=== PATIENT | female | born 1970 | race Caucasian/White ===

== ENCOUNTER 2018-01-19 18:03 | Emergency (ER) | payer OTHER ==
[~2018-01-19] VITALS: Ht 162.6 cm; Wt 83.9 kg
--- NOTE | 2018-01-19 18:03 | NUR ---
PATIENT BIBA TO BED 3.
[2018-01-19 18:14] VITALS: BP 121/69
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
--- NOTE | 2018-01-19 18:40 | NUR ---
REMOVED C-COLLAR AND CLEARED C-SPINE PRECAUTIONS
[2018-01-19] MEDS ORDERED: BACITRACIN OINT 500 UNITS/GM PKT TP ONE (19:10)
[2018-01-19] MEDS ORDERED: DIAZEPAM 5 MG TAB PO ONE (19:10)
[2018-01-19] MEDS ORDERED: KETOROLAC 30 MG/ML VIAL IM ONE (19:10)
--- NOTE | 2018-01-19 19:15 | NUR ---
xray at bedside
--- NOTE | 2018-01-19 19:21 | NUR ---
REPORT GIVEN TO DANILO GLORIA
[2018-01-19 20:12] VITALS: BP 126/83
--- NOTE | 2018-01-19 20:12 | NUR ---
Patient discharged with v/s stable. Written and verbal after care instructions given and explained. Patient alert, oriented and verbalized understanding of instructions. Ambulatory with to car. All questions addressed prior to discharge. ID band removed. Patient advised to follow up with PMD. Rx of VALIUM, AND NAPROSYN given. Patient educated on indication of medication including possible reaction and side effects. Opportunity to ask questions provided and answered.
== END 2018-01-19 20:12 | disposition home or self-care (01) ==
LOC: MED 18:03
DX: S16.1XXA Strain of muscle, fascia and tendon at neck level, initial encounter (principal); R07.89 Other chest pain; V49.59XA Passenger injured in collision with other motor vehicles in traffic accident, initial encounter; Y93.89 Activity, other specified; Y92.413 State road as the place of occurrence of the external cause; Y99.8 Other external cause status
CPT/HCPCS: 71045; 96372; 99283; J1885; Q0092